=== PATIENT | female | born 2000 | race Caucasian/White ===

== ENCOUNTER 2022-08-08 10:29 | Emergency (ER) | payer OTHER ==
[2022-08-08] MEDS ORDERED: Acetaminophen 500 MG TAB ONE (11:05)
[2022-08-08] MEDS ORDERED: Ibuprofen 200 MG TAB ONE (11:05)
[2022-08-08] MEDS ORDERED: Ondansetron ODT 4 MG TAB ONE (11:05)
== END 2022-08-08 12:00 | disposition home or self-care (01) ==
LOC: CSHERS 10:29
DX: S09.90XA Unspecified injury of head, initial encounter (principal); R51.9 Headache, unspecified; R11.0 Nausea; F07.81 Postconcussional syndrome; D64.9 Anemia, unspecified; W18.00XA Striking against unspecified object with subsequent fall, initial encounter; Y93.01 Activity, walking, marching and hiking
CPT/HCPCS: 70450; Q0162